=== PATIENT | female | born 1980 | race Caucasian/White ===

== ENCOUNTER 2017-02-25 18:38 | Inpatient (IN) | payer BC ==
--- NOTE | ~2017-02-25 | CR71 ---
[facility] A Service of [facility] RADIOLOGY TEXT RESULTS PATIENT: MARIO CRAWLEY LOCATION: C2A 239-01 : [birth year] UNIT #: [id number] AGE: [address]: Cindy Parish MD SEX: F ORDER DR: [id number] [facility] [address] [place], [place] [address] [id number] MR#: [id number] Acc #: [id number] NAME: MARIO CRAWLEY : 1980 SEX: F STUDY DATE/TIME: 02/28/2017 02:38 UNIT: C2A ROOM: 239 STUDY DESCRIPTION: CR Chest Single View Attending Physician: Cindy Parish M.D. Referring Physician: Duyen Ram M.D. Ordering Physician: Cindy Parish M.D. Primary Care Physician: Duyen aRm M.D. MEDICAL IMAGING REPORT This report is preliminary unless electronic signature is present EXAM Chest x-ray, 02/28/2017 at 02:38 INDICATION PICC placement today. FINDINGS AP portable chest is compared with 09/07/2008. New right arm-approach PICC is in the upper SVC. There is borderline cardiomegaly. The lungs are clear. No pneumothorax. Dictated by... Ignacio Solares Jr., M.D. THIS IS AN ELECTRONICALLY VERIFIED REPORT Ignacio Solares Jr., M.D. at 02/28/2017 6:26 AM TIM/kamala TD: 02/28/2017 04:22 JOB #: [id number] MEDICAL IMAGING REPORT Page 1 of 1 COPY
--- NOTE | ~2017-02-25 | A ---
[facility] Nutrition Therapy DATE: 02/27/17 Patient: MARIO CRAWLEY Physician: KIMANI Address: [address] Room/Bed: [address] [place] [address], Zip: [place] [address] Admit Date: 02/25/17 Date of : [birth year] Height: 5 8 Weight: 274 124.3 NUTRITIONAL ASSESSMENT: REASON: CONSULT RE: DM DIET EDUCATION PT IS 36 Y.O. FEMALE ADMITTED FOR PELVIC ABSCESS RD PROVIDED WRITTEN AND VERBAL CC DIET EDUCATION. RD PROVIDED LIST OF FOODS TO AVOID AND FOODS TO EAT MORE OFTEN. RD ALSO EMPHASIZED IMPORTANCE OF PORTION CONTROL, READING FOOD LABELS AND LIMITING SUGAR-SWEETENED BEVERAGES. PT REPORTS LOSING ~40# PAST 6 MONTHS BY "EATING HEALTHY AND EXERCISING". PT ADDS THAT HER MOTHER IN SEPTEMBER AND SHE WENT BACK TO HER [place]. PT REPORTS WANTING TO CUT BACK ON SUGAR-SWEETENED BEVERAGES (INCREASE WATER INTAKE IN PLACE OF) AND WORK ON PORTION CONTROL. PT DEMONSTRATED AND VERBALIZED UNDERSTANDING OF THE TOPIC. PT REPORTED NO DIET QUESTIONS AT THIS TIME. RD TO REMAIN AVAILABLE. RECOMMENDATIONS: 1. ENCOURAGE COMPLIANCE OF CURRENT DIET ORDER-CC 2. RE-CONSULT RD IF FURTHER DIET EDUCATION REQUESTED/NEEDED RD WILL F/U PER PROTOCOL Respectfully, JUAN SINGH MS, RD, LD Food and Nutritional Services [facility] cc: client file
--- NOTE | ~2017-02-25 | BMI ---
[facility] Nutrition Therapy DATE: 02/26/17 Patient: MARIO CRAWLEY Physician: KIMANI Address: [address] Room/Bed: [address] [place] [address], Zip: [place] [address] Admit Date: 02/25/17 Date of : [birth year] Height: 5 8 Weight: 274 124.3 HIGH BMI NOTE: DX: 36 y/o female admitted with pelvic abscess ANTHROPOMETRICS: Ht: 68", Wt: 124.3 kg, BMI: 41 (Stage III obese) DIET: Consistent carb INTERVENTION: + healthy heart restriction, meds/fluids per MD RECOMMENDATIONS: Consider adding healthy heart restriction to current diet order to promote a gradual weight loss towards a healthy BMI range. Respectfully, Suma Summers RD, LD Food and Nutritional Services [facility] cc: client file
--- NOTE | ~2017-02-25 | HP ---
Unit #: [id number] #: [id number] Patient: MARIO CRAWLEY [id number] [place], [place] [address] [id number] MR#: [id number] NAME: MARIO CRAWLEY. ROOM: 239 Age: 36 Sex: F Admission Date: 02/25/2017 : 1980 Attending Physician: Polina Walker M.D. Referring Physician: Duyen Ram M.D. Primary Care Physician: Duyen Ram M.D. HISTORY AND PHYSICAL CHIEF COMPLAINT Pelvic swelling. HISTORY OF PRESENT ILLNESS The patient is a 36-year-old female with past medical history of PCOS who presented to the emergency department for evaluation of the above. The patient states that she noticed a "knot" in the mons area about two to three weeks ago. On 02/22/2017, the patient states that it became painful. Since that time it has become increasingly painful and swollen, as well as read. She denies any drainage, no fever, no cough or cold symptoms. No bowel or bladder problems. In the emergency department, white blood cell count is 15, glucose is 272. She has never been told she was diabetic. She was given vancomycin the emergency department, as well as Toradol. She is being admitted to [facility] for evaluation and further treatment. PAST MEDICAL HISTORY 1. Admission to [facility] 09/07/2008 for symptomatic anemia. 2. PCOS. PAST SURGICAL HISTORY None. SOCIAL HISTORY The patient lives alone. There is no tobacco or alcohol use. FAMILY HISTORY Notable for her mother dying in 08/2016. She had dementia. Her dad has heart problems. ALLERGIES Penicillin. HOME MEDICATIONS Claritin 10 mg daily. REVIEW OF SYSTEMS A complete review of systems is negative except as indicated in the HPI. The patient states that she has lost about 40 pounds over the past eight months. She has been exercising and trying to eat healthy. Unit #: [id number] #: [id number] Patient: MARIO CRAWLEY PHYSICAL EXAMINATION VITAL SIGNS: Temperature 98.6, pulse 101, respiration 16, blood pressure 176/100. Oxygen saturation is 100% on room air. GENERAL: The patient is a very pleasant female who is awake and alert in no acute distress. HEENT: The head is atraumatic. Mucous membranes are moist. NECK: Supple. Trachea is midline. CARDIOVASCULAR: Regular rate and rhythm. LUNGS: Clear to auscultation bilaterally with no increased work of breathing. ABDOMEN: Soft, nontender with bowel sounds present in all four quadrants. GENITOURINARY: The patient has an area of erythema, warmth and tenderness to palpitation involving the mons pubis extending to the left labia majora. EXTREMITIES: Nontender with no pedal edema. NEUROLOGIC: The patient is awake and alert. She follows commands. PSYCH: Mood and affect are normal. The patient is cooperative. SKIN: Skin of examined areas demonstrates a previously described abnormality. DIAGNOSTIC STUDIES LABORATORY STUDIES: Basic metabolic panel notable for sodium of 130 that corrects with glucose of 270. She was accounted for potassium is 3.1 and chloride 96. Complete blood count notable for white blood cell count of 15. ASSESSMENT The patient is a 36-year-old female with: 1. Abscess, mons pubis. 2. Sepsis. 3. New diabetes with a blood sugar of 272. 4. Hypokalemia. 5. PCOS. The patient states she was on metformin in the past for PCOS but has not been on that medication for more than a year. PLANS 1. Admit to med/surg. 2. Healthy heart consistent carb diet. 3. NPO after midnight for possible surgical intervention. 4. Blood cultures x2. 5. Vancomycin IV. 6. Consult [facility] regarding abscess. 7. Sepsis protocol with stat lactic acid. 8. P.r.n. Tylenol. 9. P.r.n. Toradol. 10. CT of the abdomen and pelvis for further characterization of abscess. 11. Check urine test. 12. Urinalysis with culture and sensitivity. 13. Check magnesium level. 14. Potassium and magnesium protocol. 15. Hemoglobin A1c. 16. Low dose sliding scale insulin with Accu-Cheks. 17. SCDs for DVT prophylaxis. 18. Repeat labs in the morning. 19. Additional workup and consultants based on above. Dictated by Polina Walker M.D. Unit #: [id number] #: [id number] Patient: DENISAMARIO HANSON/curly TD: 02/26/2017 06:55 JOB #: [id number] HISTORY AND PHYSICAL Page 1 of 1 X Polina Walker MD HISTORY AND PHYSICAL
--- NOTE | ~2017-02-25 | OR ---
Unit #: [id number] #: [id number] Patient: MARIO CRAWLEY [id number] [address] [place], [place] [address] [id number] MR#: [id number] NAME: MARIO CRAWLEY. ROOM: 239 Date of Procedure: 02/26/2017 Admission Date: 02/25/2017 Surgeon: Ignacio Ma M.D. : 1980 Attending Physician: Cindy Parish M.D. Referring Physician: Duyen Ram M.D. Primary Care Physician: Duyen Ram M.D. OPERATIVE REPORT PREOPERATIVE DIAGNOSES Sepsis with abscess in the mons pubis and left labia majora. POSTOPERATIVE DIAGNOSIS Sepsis with abscess in the mons pubis and left labia majora. PROCEDURE PERFORMED Incision and drainage of left labia majora and mons pubis. ANESTHESIA General endotracheal anesthesia. ESTIMATED BLOOD LOSS 30 mL. CULTURES Aerobic and anaerobic cultures taken. INDICATIONS FOR PROCEDURE A 36-year-old morbidly obese diabetic, presents with signs and symptoms of sepsis and on examination was found to have a large abscess extending from the left mons pubis down into the superior portion of the left labia majora. DESCRIPTION OF PROCEDURE The patient was transported from her hospital room to the operating room, and after induction of general endotracheal anesthesia, she was placed in a frog-leg position. Hair was clipped, and she was prepped and draped in usual sterile fashion. She had already been on IV antibiotics. After full examination, an incision was made in the skin line transversely and the skin line of the mons, I dissected down and entered into the abscess cavity. There was a large amount of grossly purulent thick abscess fluid. Aerobic and anaerobic cultures were taken. I copiously irrigated the abscess cavity, broke down all loculations and opened it widely to facilitate wound care. No further debridement was necessary. I irrigated and obtained hemostasis, then packed the wound tightly with Kerlix soaked in Betadine. A single Vicryl U suture was placed to hold the packing in position. Dry sterile dressing was placed. Sponges and needle counts were correct x3. The patient tolerated the procedure well and transported to recovery in stable condition. There was no family available to speak with after the case. Of note is that she had a perineal, inguinal, and subpannicular fungal infection and she will be started on appropriate Unit #: [id number] #: [id number] Patient: MARIO CRAWLEY treatment postoperatively. Dictated by... Michelle Grajeda/lottie TD: 02/26/2017 22:59 JOB #: [id number] OPERATIVE REPORT Page 1 of 1 X Ignacio Ma MD X PROCEDURE OPERATIVE NOTE
--- NOTE | ~2017-02-25 | DS ---
Unit #: [id number] #: [id number] Patient: MARIO CRAWLEY [id number] [address] [place], [place] [address] [id number] MR#: [id number] NAME: MARIO CRAWLEY. ROOM: 239 Age: 36 Sex: F Admission Date: 02/25/2017 : 1980 Discharge Date: 02/28/2017 Attending Physician: Cindy Parish M.D. Referring Physician: Duyen Ram M.D. Primary Care Physician: Duyen Ram M.D. DISCHARGE SUMMARY PRIMARY CARE PHYSICIAN Duyen Ram M.D. DISCHARGE DIAGNOSES 1. Labial abscess, status post incision and drainage by general surgery. Wound growth with staphylococcus aureus sensitive to Levaquin. 2. Sepsis present on admission due to the labial abscess. 3. Type 2 diabetes, newly diagnosed with an A1c of 11.6. 4. History of polycystic ovarian syndrome. 5. Morbidly obese with a BMI of 41. CONSULTANTS General Surgery with [facility]. PROCEDURES The patient had an incision and drainage of the left labia majora and mons pubis by Dr. Ma on 02/26/2017. DIAGNOSTIC STUDIES IMAGING STUDIES: CT of abdomen and pelvis on 02/26/2017, impression is fat stranding in the left labia majora extending up to skin and underlying soft tissue lesion, which is probably a phlegmon. No drainable discrete abscess is seen at this time. There was some mild sigmoid diverticulosis, but there was no diverticulitis in GI tract including the appendix. Otherwise, has a normal unopacified appearance remainder of the abdomen and pelvis CT is normal. She had a chest x-ray on 02/28/2017, following a PICC line placement, and the lungs were clear. No pneumothorax is noted. LABORATORY RESULTS: On the day of discharge, the patient's labs were, BMP with glucose of 214, BUN 9, creatinine 0.7. Sodium 137, potassium 3.5, chloride 105, CO2 of 22, calcium is 9, magnesium of 1.5, which will be replaced. CBC with WBC of 8.2, RBC of 3.89, hemoglobin is 10.8, hematocrit is 32.4, MCV is 83.5, MCH is 27.9, MCHC is 33.4, RDW is 13.5, platelets are 296, MPV is 8.1. MICROBIOLOGY: The patient's blood culture had no growth and 2/2 sets of urine culture had no growth. The wound following the incision and drainage grew staphylococcus aureus sensitive to Levaquin, Bactrim, and clindamycin. HOSPITAL COURSE The patient is a pleasant 36-year-old female with past medical history of PCOS, who presented to the emergency department due to pelvic swelling. Unit #: [id number] #: [id number] Patient: MARIO CRAWLEY She states that she noticed a knot in the mons area about 2 to 3 weeks prior to admission. The patient states that it became painful and had increasing swelling as well as redness. The patient denied any drainage. Denied fever. Denied cold symptoms or bladder or bowel symptoms. In the emergency room, the patient's white blood count was noted to be 15,000, glucose is 272. She was admitted for sepsis with likely abscess in her labial region. We started treatment with vancomycin and added treatment with clindamycin as well. She was seen in consultation with surgery, who had performed an incision and drainage of the abscess the following day. Blood culture was drawn, no growth. At the time of discharge, urine culture also had no growth. The abscess from surgery did grow staph aureus. It is sensitive to vancomycin, clindamycin and also Levaquin, which we will be transitioning to Levaquin. Given that it is in the region in clindamycin, possibly would have more GI side effects. For the patient's hyperglycemia, A1c was assessed which was found to be 11.6. She was diagnosed with type 2 diabetes. She is requiring insulin. I have started with more amounts of Levemir 5 units subcutaneously at bedtime. She will be discharged with that as well as sliding scale insulin prior to meals and at bedtime. 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 The patient was given prescription for diabetic supplies including glucometer test strips. We will be starting lisinopril 5 mg orally daily as renal protective given her diabetes state, and I will also be prescribing metformin 1000 mg orally b.i.d. as the patient tells me that she has this in the past and has been tolerant to it for her PCOS, but it had no effects on her, therefore she has stopped it. DISCHARGE CONDITION Stable. We will be setting up home health through [facility] to assist the patient with dressing changes. She is to have dressing changes as instructed by general surgery and also with assistance of [facility] home health and instruction for packing through surgery is to use Dakin's wet to dry three times daily. FOLLOWUP The patient is to follow up with general surgery in 1 week. Follow up with her primary care physician in 1 to 2 weeks. DISCHARGE MEDICATIONS Include Diflucan 200 mg orally daily until 03/02/2017; nystatin apply topically b.i.d.; Claritin 10 mg orally daily; lisinopril 5 mg orally daily; Levemir 5 units subcutaneously at bedtime; NovoLog low-dose sliding scale prior to meals and at bedtime; metformin 1000 mg orally b.i.d.; Levaquin 750 mg orally daily for 10 more days. We will discuss with Dr. Parish if the patient would need a prescription for Picacho, diabetic test supplies, glucometer lancets and test strips were also given. Dictated by... Zee Landin PA-C for Michelle Batista/lottie TD: 03/03/2017 04:23 JOB #: [id number] Unit #: [id number] #: [id number] Patient: MARIO CRAWLEY DISCHARGE SUMMARY Page 1 of 1 X X DISCHARGE SUMMARY
--- NOTE | ~2017-02-25 | CT2 ---
[facility] A Service of [facility] RADIOLOGY TEXT RESULTS PATIENT: MARIO CRAWLEY LOCATION: C2A 239- : [birth year] UNIT #: [id number] AGE: [address]: Polina Walker MD SEX: F ORDER DR: [id number] [facility] [address] [place], [place] [address] [id number] I MR#: [id number] Acc #: [id number] NAME: MARIO CRAWLEY. : 1980 SEX: F STUDY DATE/TIME: 02/26/2017 00:33 UNIT: C2A ROOM: 239 STUDY DESCRIPTION: CT Abd and Pelv W Cont Attending Physician: Polina Walker M.D. Referring Physician: Duyen Ram M.D. Ordering Physician: Lulu Aponte P.A.-C. Primary Care Physician: Duyen Ram M.D. MEDICAL IMAGING REPORT This report is preliminary unless electronic signature is present EXAM Abdomen and pelvis CT, 02/26/2017 at 0033 hours. INDICATION Pelvic pain worsening since the last . Symptoms for about 5 days. Left groin abscess. Sepsis. Elevated blood sugar. TECHNIQUE Axial images were obtained through the abdomen and pelvis following IV contrast administration. Multiplanar reformats were obtained. No comparison. This CT exam was performed with one or more of the following radiation dose reduction techniques: automatic exposure control, adjustment of mA and/or kV according to patient size, and iterative reconstruction. FINDINGS ABDOMEN: Lung bases are clear. Gallbladder is normal. There is no biliary obstruction. The solid organs are normal. There is no adenopathy or free fluid. Unopacified GI tract is normal. PELVIS: The appendix is normal. There are a few scattered colonic diverticula. The GI tract is otherwise unremarkable. Solid pelvic organs are normal. The bladder is decompressed and not well evaluated. There is no free fluid. There is fat stranding in the left labia majora with a probable phlegmon measuring roughly 3.5 cm x 4.7 cm x 4.5 cm. Note is made of bilateral sacroiliitis. There is some degenerative disease in the lumbar spine, predominately at L5-S1. IMPRESSION 1. Fat stranding in the left labia majora extending up to the skin. There is an underlying soft tissue lesion which is probably a STS. [facility] A Service of [facility] RADIOLOGY TEXT RESULTS PATIENT: MARIO CRAWLEY LOCATION: [address] [address] : [birth year] UNIT #: [id number] AGE: [address]: Polina Walker MD SEX: F ORDER DR: phlegmon. See measurements above. No drainable discrete abscess is seen at this time. 2. There is some mild sigmoid diverticulosis but there is no diverticulitis. The GI tract, including the appendix, otherwise have a normal unopacified appearance. 3. The remainder of the abdomen and pelvis CT is normal. Dictated by... Ignacio Solares Jr., M.D. THIS IS AN ELECTRONICALLY VERIFIED REPORT Ignacio Solares Jr., M.D. at 02/26/2017 6:07 AM TIM/kamala TD: 02/26/2017 04:25 JOB #: [id number] MEDICAL IMAGING REPORT Page 1 of 1 COPY
[2017-02-25 18:24] LABS: BASOPHIL# 0.1 X10e3 (0-0.3); BASOPHIL% 0.7 % (0-2.5); EOSINOPHIL# 0.3 X10e3 (0-0.7); EOSINOPHIL% 2.3 % (0.0-7.0); HEMATOCRIT 40.3 % (35.0-45.0); HEMOGLOBIN 13.4 gm/dL (12.0-16.0); LYMPHOCYTE# 2.4 X10e3 (1.0-3.5); LYMPHOCYTE% 16.3 % (17.0-45.0); MEAN CELL VOLUME 83.7 FL (83-96); MEAN CORPUSCULAR HEMOGLOBIN 27.9 PG (28-34); MEAN CORPUSCULAR HGB CONC 33.3 g/dL (30-36); MEAN PLATELET VOLUME 8.5 FL (6.5-11.5); MONOCYTE# 0.7 X10e3 (0-1.0); MONOCYTE% 4.9 % (3.0-12.0); NEUTROPHIL# 11.3 X10e3 (1.5-7.1); NEUTROPHIL% 75.8 % (40-75); PLATELET COUNT 330 X10e3 (140-420); RED BLOOD COUNT 4.81 X10e (3.90-5.30); RED CELL DISTRIBUTION WIDTH 13.6 % (11.0-15.5)
[~2017-02-25 18:38] MED LIST: CERTAGEN PO; FERROUS SULFATE PO; GLUCOPHAGE XR500 MG PO; METFORMIN PO; glucosamine PO
[2017-02-25 18:40] LABS: DIFF IND NO
[2017-02-25 18:58] LABS: CALCIUM SERUM 9.1 mg/dL (8.4-10.2); CREATININE SERUM 0.5 mg/dL (0.6-1.4); GLOM FILT RATE Estimated 122.8 mL/min (>60); POTASSIUM 3.1 mmol/L (3.5-5.1)
[2017-02-25] MEDS ORDERED: CLARITIN10 M3 PO (19:28)
[2017-02-26 00:30] LABS: BASOPHIL# 0.1 X10e3 (0-0.3); BASOPHIL% 0.5 % (0-2.5); EOSINOPHIL# 0.3 X10e3 (0-0.7); EOSINOPHIL% 2.1 % (0.0-7.0); HEMATOCRIT 34.9 % (35.0-45.0); HEMOGLOBIN 11.8 gm/dL (12.0-16.0); LYMPHOCYTE# 2.6 X10e3 (1.0-3.5); LYMPHOCYTE% 19.7 % (17.0-45.0); MEAN CELL VOLUME 82.6 FL (83-96); MEAN CORPUSCULAR HEMOGLOBIN 27.8 PG (28-34); MEAN CORPUSCULAR HGB CONC 33.7 g/dL (30-36); MEAN PLATELET VOLUME 8.3 FL (6.5-11.5); MONOCYTE# 0.8 X10e3 (0-1.0); NEUTROPHIL# 9.5 X10e3 (1.5-7.1); NEUTROPHIL% 71.7 % (40-75); PLATELET COUNT 270 X10e3 (140-420); RED BLOOD COUNT 4.23 X10e (3.90-5.30); RED CELL DISTRIBUTION WIDTH 13.3 % (11.0-15.5); WHITE BLOOD COUNT 13.2 X10e3 (4.0-10.5)
[2017-02-26 00:31] LABS: DIFF IND NO
[2017-02-26 03:01] LABS: URINE SOURCE CLEAN CATCH
[2017-02-26 03:20] LABS: URINE APPEARANCE TURBID; URINE BLOOD 3+ (NEG); URINE GLUCOSE >1000 MG/DL (NEG); URINE KETONE NEG (NEG); URINE LEUKOCYTE ESTERASE 2+ (NEG); URINE NITRATE POS (NEG); URINE PROTEIN 2+ (NEG); URINE SPECIFIC GRAVITY 1.076 (1.003-1.035); URINE UROBILINOGEN 0.2 MG/DL (NEG)
[2017-02-26 03:22] LABS: CULTURE INDICATED? YES; URBCS1 AUWI INNUM /[HPF] (0-2); URINE BACTERIA AUWI NEG (NEGATIVE); URINE SQUAMOUS EPITHELIAL CELL MANY /[HPF]; UWBCS1 AUWI 50-100 (0-5)
[2017-02-26 03:30] LABS: URINE BILIRUBIN NEG (NEG); URINE COLOR RED
[2017-02-26 09:09] LABS: PROTHROMBIN TIME (PATIENT) 10.7 SECONDS (9.6-11.5)
[2017-02-26 17:49] LABS: MAGNESIUM 1.7 mg/dL (1.6-3.0); POTASSIUM 4.5 mmol/L (3.5-5.1)
[2017-02-27 08:28] LABS: HEMATOCRIT 36.9 % (35.0-45.0); HEMOGLOBIN 12.1 gm/dL (12.0-16.0); MEAN CELL VOLUME 84.6 FL (83-96); MEAN CORPUSCULAR HEMOGLOBIN 27.7 PG (28-34); MEAN CORPUSCULAR HGB CONC 32.8 g/dL (30-36); MEAN PLATELET VOLUME 8.7 FL (6.5-11.5); RED BLOOD COUNT 4.37 X10e (3.90-5.30); RED CELL DISTRIBUTION WIDTH 13.5 % (11.0-15.5); WHITE BLOOD COUNT 14.8 X10e3 (4.0-10.5)
[2017-02-27 09:09] LABS: BUN/CREATININE RATIO 17.14; CREATININE SERUM 0.7 mg/dL (0.6-1.4); GLOM FILT RATE Estimated 109.9 mL/min (>60); MAGNESIUM 1.8 mg/dL (1.6-3.0); POTASSIUM 3.6 mmol/L (3.5-5.1)
[2017-02-28 06:11] LABS: HEMATOCRIT 32.4 % (35.0-45.0); HEMOGLOBIN 10.8 gm/dL (12.0-16.0); MEAN CELL VOLUME 83.5 FL (83-96); MEAN CORPUSCULAR HEMOGLOBIN 27.9 PG (28-34); MEAN CORPUSCULAR HGB CONC 33.4 g/dL (30-36); MEAN PLATELET VOLUME 8.1 FL (6.5-11.5); RED BLOOD COUNT 3.89 X10e (3.90-5.30); RED CELL DISTRIBUTION WIDTH 13.5 % (11.0-15.5); WHITE BLOOD COUNT 8.2 X10e3 (4.0-10.5)
[2017-02-28 06:46] LABS: BUN/CREATININE RATIO 12.85; CREATININE SERUM 0.7 mg/dL (0.6-1.4); GLOM FILT RATE Estimated 109.9 mL/min (>60); MAGNESIUM 1.5 mg/dL (1.6-3.0); POTASSIUM 3.5 mmol/L (3.5-5.1)
[2017-02-28] MEDS ORDERED: NOVOLOG FL100 UNIT/1 (12:16)
[2017-02-28] MEDS ORDERED: METFORMIN HCL1000 M1 PO (12:16)
[2017-02-28] MEDS ORDERED: DIFLUCAN200 MG PO (12:17)
[2017-02-28] MEDS ORDERED: LEVEMIR FL100 UNIT/1 SUBQ (12:17)
[2017-02-28] MEDS ORDERED: ZESTRIL5 MG PO (12:18)
[2017-02-28] MEDS ORDERED: LEVAQUIN750 MG PO (12:18)
[2017-02-28] MEDS ORDERED: NYSTATIN1 EAC1 TOP (12:19)
== END 2017-02-28 14:30 | disposition home health service (06) | DRG 854 ==
LOC: CED 18:38 → CEDOF 20:10 → C2A 02-26 01:13
PROVIDERS: Family Medicine; Physician Assistant; Specialist
PROC: 0U9M0ZZ Drainage of Vulva, Open Approach (ICD-10-PCS; principal; 2017-02-26 08:30)
PROC: 02HV33Z Insertion of Infusion Device into Superior Vena Cava, Percutaneous Approach (ICD-10-PCS; 2017-02-27)
DX: A41.02 Sepsis due to Methicillin resistant Staphylococcus aureus (principal); N76.4 Abscess of vulva; Z68.41 Body mass index [BMI] 40.0-44.9, adult; E11.9 Type 2 diabetes mellitus without complications; E87.6 Hypokalemia; E28.2 Polycystic ovarian syndrome; B95.62 Methicillin resistant Staphylococcus aureus infection as the cause of diseases classified elsewhere; Z88.0 Allergy status to penicillin; E66.01 Morbid (severe) obesity due to excess calories
CPT/HCPCS: 36415; 71010; 74177; 80048; 80202; 81003; 82947; 83036; 83605; 83735; 84132; 84703; 85025; 85027; 85610; 87040; 87070; 87075; 87077; 87086; 87186; 87205; 96365; 96366; 96375; 99285; J1100; J1650; J1815; J1885; J2405; J3010; J3370; J3475; Q9967